=== PATIENT | female | born 1935 | race Caucasian/White ===

== ENCOUNTER → 2018-07-26 | Outpatient (CLI) | payer MEDICARE ==
[~2018-07-26] MED LIST: ASPI-496 PO; ASPI-515 PO; ASPI81TA45 PO; ATOR20TA PO; CALC-451 PO; CARV-39 PO; CLOP75TA52 PO; DOCU-131 PO; EPLE25TA PO; FURO-92 PO; FURO-93 PO; HYDR-3342 PO; LISI-170 PO; METF500T17 PO; METO25TA91 PO; METO50TA82 PO/NG; OXYC1TAB7 PO; PANT40TA3 PO; POTA10TA5 PO; POTA20PA25 PO; SIMV10TA3 PO; SPIR25TA PO; SPIR25TA5 PO; URSO300C27 PO; VIT1CAPS42 PO; VITA200C7 PO; ZOLP-413 PO
[2018-07-26 12:18] LABS: BASOPHILS # (AUTO) 0.02 x10^3/uL (0-0.1); BASOPHILS % (AUTO) 0 % (0-1); EOSINOPHILS # (AUTO) 0.22 x10^3/uL (0-0.4); EOSINOPHILS % (AUTO) 3 % (1-7); LYMPHOCYTES # (AUTO) 1.29 x10^3/uL (1-3.4); LYMPHOCYTES % (AUTO) 17 % (22-44); MD NO; MEAN CORPUSCULAR HEMOGLOBIN 32.6 pg (27.0-34.8); MEAN CORPUSCULAR HGB CONC 33.3 g/dL (32.4-35.8); MEAN CORPUSCULAR VOLUME 97.8 fL (80-100); MEAN PLATELET VOLUME 8.2 fL (7.4-10.4); MONOCYTES # (AUTO) 0.86 x10^3/uL (0.2-0.8); MONOCYTES % (AUTO) 11 % (2-9); NEUTROPHILS # (AUTO) 5.13 x10^3/uL (1.8-6.8); NEUTROPHILS % (AUTO) 68 % (42-75); PLATELET COUNT 288 x10^3/uL (130-400); RED BLOOD COUNT 4.53 x10^6/uL (3.82-5.3); RED CELL DISTRIBUTION WIDTH 13.8 % (9.6-15.2)
[2018-07-26 12:29] LABS: CULTURE INDICATED? YES; MICROSCOPIC NOT IND
[2018-07-26 12:48] LABS: ALBUMIN 3.6 g/dL (3.4-5.0); ANION GAP 5 mmol/L (5-15); CALCIUM 9.7 mg/dL (8.5-10.1); CHLORIDE 106 mmol/L (98-107)
[2018-07-26 12:52] LABS: ALANINE AMINOTRANSFERASE 33 U/L (12-78); ALKALINE PHOSPHATASE 292 U/L (45-117); BILIRUBIN,TOTAL 0.6 mg/dL (0.2-1.0); CREATININE 0.94 mg/dL (0.55-1.02); TOTAL PROTEIN 7.3 g/dL (6.4-8.2)
== END | disposition home or self-care (01) ==
LOC: STAR 10:48
PROVIDERS: ATTEND Orthopaedic Surgery
DX: Z01.818 Encounter for other preprocedural examination (principal); M17.12 Unilateral primary osteoarthritis, left knee
CPT/HCPCS: 36415; 80053; 81003; 85025; 87077; 87081; 87086; 87186; 93005

== ENCOUNTER 2018-08-02 05:45 | Inpatient (IN) | payer MEDICARE ==
[2018-07-26 11:34] VITALS: BP 181/93
[~2018-08-02] VITALS: Ht 152.4 cm; Wt 62.8 kg
[2018-08-02] MEDS ORDERED: KETOROLAC 60 MG/2 ML ONE (06:31)
[2018-08-02] MEDS ORDERED: TRANEXAMIC ACID 100 MG/ML, 10ML ONE (06:32)
[2018-08-02] MEDS ORDERED: SODIUM CHLORIDE 0.9% 100 ML ONE (06:32)
[2018-08-02] MEDS ORDERED: EPINEPHRINE 1 MG/ML, 1ML ONE (06:32)
[2018-08-02] MEDS ORDERED: VANCOMYCIN 1,000 MG ONE (06:32)
[2018-08-02] MEDS ORDERED: ROPIvacaine/PF 0.2%, 20 ML ONE (06:32)
[2018-08-02] MEDS ORDERED: FENTANYL PF 100 MCG/2ML ONE (06:38)
[2018-08-02] MEDS ORDERED: MIDAZOLAM 1 MG/ML, 2ML ONE (06:38)
[2018-08-02] MEDS ORDERED: PROPOFOL 50 ML ONE (06:41)
[2018-08-02] MEDS ORDERED: ACETAMINOPHEN 500 MG TABLET PO ONE (07:00)
[2018-08-02] MEDS ORDERED: ONDANSETRON ODT 8 MG PO ONE (07:00)
[2018-08-02] MEDS ORDERED: GABAPENTIN 300 MG CAPSULE PO ONE (07:00)
[2018-08-02] MEDS ORDERED: LACTATED RINGERS 1,000 ML IV SCH (07:01)
[2018-08-02] MEDS ORDERED: AMOX1TAB64 PO (07:04)
[2018-08-02] MEDS ORDERED: DEXAMETHASONE 4 MG/ML, 1ML ONE (07:10)
[2018-08-02] MEDS ORDERED: METOPROLOL 1 MG/ML, 5ML IV PRN (08:00)
[2018-08-02] MEDS ORDERED: OXYcodone 5 MG/5 ML ORAL.SOL UDC PO PRN (08:00)
[2018-08-02] MEDS ORDERED: HYDROmorphone 2 MG/ML, 1ML IVPush PRN (08:00)
[2018-08-02] MEDS ORDERED: ONDANSETRON 2MG/ML, 2ML IV PRN ×2 (08:00→09:00)
[2018-08-02] MEDS ORDERED: MIDAZOLAM 1 MG/ML, 2ML IV PRN (08:00)
[2018-08-02] MEDS ORDERED: hydrALAzine 20 MG/ML, 1ML IV PRN (08:00)
[2018-08-02] MEDS ORDERED: FENTANYL PF 100 MCG/2ML IV PRN (08:00)
[2018-08-02] MEDS ORDERED: ALBUTEROL/IPRATROPIUM 2.5MG/0.5MG, 3 ML NPPB PRN (08:00)
[2018-08-02] MEDS ORDERED: OXYcodone 5 MG/5 ML ORAL.SOL UDC ONE (08:57)
[2018-08-02] MEDS ORDERED: LISINOPRIL 20 MG TABLET PO SCH (09:00)
[2018-08-02] MEDS ORDERED: ZOLPIDEM 5MG TABLET PO PRN (09:00)
[2018-08-02] MEDS ORDERED: SENNA/DOCUSATE TABLET PO PRN (09:00)
[2018-08-02] MEDS ORDERED: HYDROmorphone 1 MG/ML, 1ML IV PRN (09:00)
[2018-08-02] MEDS ORDERED: metFORMIN 500 MG TABLET PO SCH (09:00)
[2018-08-02] MEDS ORDERED: PROMETHAZINE 25 MG/ML, 1ML IM PRN (09:00)
[2018-08-02] MEDS ORDERED: DIPHENHYDRAMINE 50 MG CAPSULE PO PRN (09:00)
[2018-08-02] MEDS ORDERED: PROMETHAZINE 12.5 MG SUPP PR PRN (09:00)
[2018-08-02] MEDS ORDERED: ACETAMINOPHEN 650 MG/20.3 ML UDC PO SCH (09:00)
[2018-08-02] MEDS ORDERED: ALUMINUM/MAG/SIMETHICONE 30 ML UDC PO PRN (09:00)
[2018-08-02] MEDS ORDERED: MAGNESIUM HYDROXIDE 8%, 30ML UDC PO PRN (09:00)
[2018-08-02] MEDS ORDERED: BISACODYL 10 MG SUPP PR PRN (09:00)
[2018-08-02] MEDS ORDERED: ONDANSETRON 4 MG TABLET PO PRN (09:00)
[2018-08-02] MEDS ORDERED: TRANEXAMIC ACID 1,000 MG in SODIUM CHLORIDE 0.9% 100 ML IVPB ONE (09:15)
[2018-08-02] MEDS ORDERED: MEPERIDINE/PF 25MG/ML,1ML ONE (09:31)
[2018-08-02] MEDS ORDERED: MEPERIDINE/PF 25MG/0.5ML IVPush PRN (10:00)
[2018-08-02] MEDS: AMOXICILLIN/CLAV 875-125MG TABLET PO SCH ×2 (10:30→21:25)
[2018-08-02] MEDS: SPIRONOLACTONE 25 MG TABLET PO SCH (11:47)
[2018-08-02] MEDS: FUROSEMIDE 20 MG TABLET PO SCH (11:49)
[2018-08-02] MEDS ORDERED: LISI-170 PO (13:14)
[2018-08-02 13:43] VITALS: BP 154/73
[2018-08-02] MEDS: SODIUM CHLORIDE 0.9% 1,000 ML IV SCH ×2 (13:51→23:07)
[2018-08-02] MEDS: TAMSULOSIN 0.4 MG CAP.ER.24H PO SCH (13:58)
[2018-08-02] MEDS: ACETAMINOPHEN 500 MG TABLET PO SCH ×2 (15:10→22:37)
[2018-08-02] MEDS: MULTIVITAMINS/MINERALS TABLET PO SCH (15:10)
[2018-08-02] MEDS: DOCUSATE 100 MG CAPSULE PO SCH ×2 (15:10→21:25)
[2018-08-02] MEDS: CEFAZOLIN PMX 1GM/50ML 50 ML IVPB SCH ×2 (16:09→23:33)
[2018-08-02] MEDS: metFORMIN 500 MG TABLET PO SCH (19:41)
[2018-08-02 20:00] VITALS: BP 128/73
[2018-08-02] MEDS ORDERED: CARVEDILOL 25 MG TABLET PO SCH (21:00)
[2018-08-02] MEDS: CARVEDILOL 25 MG TABLET PO SCH (21:00)
[2018-08-02] MEDS: LISINOPRIL 20 MG TABLET PO SCH (21:00)
[2018-08-02] MEDS ORDERED: URSODIOL 250 MG TABLET PO SCH (22:30)
[2018-08-02 23:53] VITALS: BP 104/59
[2018-08-03] MEDS: DIAZEPAM 5 MG TABLET PO PRN ×2 (03:18→21:27)
[2018-08-03 04:00] VITALS: BP 126/66
[2018-08-03] MEDS: ASPIRIN 81 MG TABLET EC PO SCH (05:23)
[2018-08-03] MEDS: ACETAMINOPHEN 500 MG TABLET PO SCH ×3 (05:25→22:31)
[2018-08-03] MEDS ORDERED: DEXAMETHASONE 4 MG/ML, 1ML IVPush SCH (06:00)
[2018-08-03 07:17] VITALS: BP 149/69
[2018-08-03] MEDS: SODIUM CHLORIDE 0.9% 1,000 ML IV SCH ×2 (08:30→17:01)
[2018-08-03] MEDS: AMOXICILLIN/CLAV 875-125MG TABLET PO SCH ×2 (11:07→22:06)
[2018-08-03] MEDS: MULTIVITAMINS/MINERALS TABLET PO SCH (11:08)
[2018-08-03] MEDS: CARVEDILOL 25 MG TABLET PO SCH ×2 (11:08→22:04)
[2018-08-03] MEDS: TAMSULOSIN 0.4 MG CAP.ER.24H PO SCH (11:08)
[2018-08-03] MEDS: KETOROLAC 30 MG/1 ML IV SCH ×2 (11:11→16:38)
[2018-08-03] MEDS: DOCUSATE 100 MG CAPSULE PO SCH ×2 (11:11→21:00)
[2018-08-03] MEDS: LISINOPRIL 10 MG TABLET PO SCH (11:11)
[2018-08-03] MEDS: FUROSEMIDE 20 MG TABLET PO SCH (11:13)
[2018-08-03] MEDS: SPIRONOLACTONE 25 MG TABLET PO SCH (11:20)
[2018-08-03 14:06] VITALS: BP 141/85
[2018-08-03] MEDS: OXYcodone IR 5MG TABLET PO PRN (16:39)
[2018-08-03] MEDS: metFORMIN 500 MG TABLET PO SCH (17:56)
[2018-08-03 20:03] VITALS: BP 155/71
[2018-08-03] MEDS: LISINOPRIL 20 MG TABLET PO SCH (22:04)
[2018-08-04] MEDS: KETOROLAC 30 MG/1 ML IV SCH (01:19)
[2018-08-04] MEDS: OXYcodone IR 5MG TABLET PO PRN ×2 (01:19→09:41)
[2018-08-04] MEDS: SODIUM CHLORIDE 0.9% 1,000 ML IV SCH ×2 (02:52→08:54)
[2018-08-04 03:10] VITALS: BP 143/69
[2018-08-04] MEDS: ASPIRIN 81 MG TABLET EC PO SCH (06:03)
[2018-08-04] MEDS: ACETAMINOPHEN 500 MG TABLET PO SCH ×4 (06:04→23:57)
[2018-08-04 07:18] VITALS: BP 152/75
[2018-08-04] MEDS: SPIRONOLACTONE 25 MG TABLET PO SCH (08:52)
[2018-08-04] MEDS: LISINOPRIL 10 MG TABLET PO SCH (08:53)
[2018-08-04] MEDS: FUROSEMIDE 20 MG TABLET PO SCH (08:53)
[2018-08-04] MEDS: AMOXICILLIN/CLAV 875-125MG TABLET PO SCH ×2 (08:53→21:05)
[2018-08-04] MEDS: TAMSULOSIN 0.4 MG CAP.ER.24H PO SCH (08:53)
[2018-08-04] MEDS: CARVEDILOL 25 MG TABLET PO SCH ×2 (08:54→21:06)
[2018-08-04] MEDS: MULTIVITAMINS/MINERALS TABLET PO SCH (08:54)
[2018-08-04] MEDS: DOCUSATE 100 MG CAPSULE PO SCH ×2 (08:54→21:05)
[2018-08-04] MEDS: DIAZEPAM 5 MG TABLET PO PRN (14:06)
[2018-08-04 14:38] VITALS: BP 117/68
[2018-08-04] MEDS: metFORMIN 500 MG TABLET PO SCH (17:50)
[2018-08-04 19:45] VITALS: BP 123/69
[2018-08-04 21:04] VITALS: BP 150/72
[2018-08-04] MEDS: LISINOPRIL 20 MG TABLET PO SCH (21:05)
[2018-08-05] MEDS: SODIUM CHLORIDE 0.9% 1,000 ML IV SCH ×2 (00:30→10:30)
[2018-08-05] MEDS: ASPIRIN 81 MG TABLET EC PO SCH (06:05)
[2018-08-05 06:48] VITALS: BP 147/72
[2018-08-05] MEDS: ACETAMINOPHEN 500 MG TABLET PO SCH ×2 (08:30→14:32)
[2018-08-05] MEDS ORDERED: TRAM50TA2 PO (08:36)
[2018-08-05] MEDS ORDERED: ASPI81TA45 PO (08:36)
[2018-08-05] MEDS ORDERED: DIAZ5TAB PO (08:37)
[2018-08-05] MEDS ORDERED: ACET325C5 PO (08:38)
[2018-08-05] MEDS: AMOXICILLIN/CLAV 875-125MG TABLET PO SCH (08:43)
[2018-08-05] MEDS: SPIRONOLACTONE 25 MG TABLET PO SCH (08:45)
[2018-08-05] MEDS: DOCUSATE 100 MG CAPSULE PO SCH (08:45)
[2018-08-05] MEDS: CARVEDILOL 25 MG TABLET PO SCH (08:45)
[2018-08-05] MEDS: FUROSEMIDE 20 MG TABLET PO SCH (08:46)
[2018-08-05] MEDS: LISINOPRIL 10 MG TABLET PO SCH (08:47)
[2018-08-05] MEDS: MULTIVITAMINS/MINERALS TABLET PO SCH (08:47)
[2018-08-05 14:07] VITALS: BP 160/83
== END 2018-08-05 16:57 | DRG 470 ==
LOC: OUT 05:45 → ORIP 08:44 → 4NOR 10:12
PROVIDERS: ADMIT Orthopaedic Surgery; ATTEND Orthopaedic Surgery
PROC: 3E0T3BZ Introduction of Anesthetic Agent into Peripheral Nerves and Plexi, Percutaneous Approach (ICD-10-PCS; 2018-08-02)
PROC: 0SRD0J9 Replacement of Left Knee Joint with Synthetic Substitute, Cemented, Open Approach (ICD-10-PCS; principal; 2018-08-02 07:30)
DX: M17.12 Unilateral primary osteoarthritis, left knee (principal); I50.42 Chronic combined systolic (congestive) and diastolic (congestive) heart failure; I10 Essential (primary) hypertension; I25.10 Atherosclerotic heart disease of native coronary artery without angina pectoris; E11.9 Type 2 diabetes mellitus without complications; Z95.1 Presence of aortocoronary bypass graft; Z95.810 Presence of automatic (implantable) cardiac defibrillator; Z60.2 Problems related to living alone; I11.0 Hypertensive heart disease with heart failure
CPT/HCPCS: 36415; 82962; 85014; 85018; G0378; J0171; J0690; J1100; J1885; J2175; J2250; J2405; J2704; J2795; J3010; J3370; Q0162; C1776; J7030; J7120

== ENCOUNTER 2021-01-22 06:20 | Day surgery (SDC) | payer MEDICARE ==
[~2021-01-22] VITALS: Ht 152.4 cm; Wt 51.9 kg
[~2021-01-22 06:20] MED LIST changes: +ACET325C6 PO; +AMOX1TAB64 PO; -ASPI-515 PO; +ASPI-963 PO; +DIAZ5TAB PO; +SIMV10TA18 PO; -SIMV10TA3 PO; +TRAM50TA2 PO
[2021-01-22 07:00] VITALS: BP 185/97
[2021-01-22] MEDS ORDERED: LIDOCAINE-MPF 1%, 5ML ONE (07:50)
[2021-01-22 08:43] LABS: INTERNATIONAL NORMALIZED RATIO 1.04 (0.93-1.1); PROTHROMBIN TIME 11.1 Seconds (9.6-11.5)
[2021-01-22] MEDS ORDERED: MIDAZOLAM 1 MG/ML, 5ML ONE (09:14)
[2021-01-22] MEDS ORDERED: FLUMAZENIL 0.1 MG/1 ML, 5ML ONE (09:14)
[2021-01-22] MEDS ORDERED: NALOXONE 1 MG/ML, 2ML ONE (09:14)
[2021-01-22] MEDS ORDERED: FENTANYL PF 100 MCG/2ML ONE (09:14)
== END 2021-01-22 11:50 | disposition home or self-care (01) ==
LOC: OUT 06:20 → EDSTATUS 08:00 → OUT 11:50
PROVIDERS: ATTEND Internal Medicine Gastroenterology
DX: K74.3 Primary biliary cirrhosis (principal); K75.9 Inflammatory liver disease, unspecified; I10 Essential (primary) hypertension; E11.9 Type 2 diabetes mellitus without complications; I25.10 Atherosclerotic heart disease of native coronary artery without angina pectoris; I25.2 Old myocardial infarction; M81.0 Age-related osteoporosis without current pathological fracture; Z79.82 Long term (current) use of aspirin; Z79.899 Other long term (current) drug therapy; Z88.8 Allergy status to other drugs, medicaments and biological substances; Z96.651 Presence of right artificial knee joint; Z98.890 Other specified postprocedural states
CPT/HCPCS: 36415; 47000; 77012; 85610; 88307; 88313; 99156; J2250; J3010; J2310

== ENCOUNTER 2021-03-17 13:27 | Inpatient (IN) | payer MEDICARE ==
[~2021-03-17] VITALS: Ht 152.4 cm; Wt 54.4 kg
[2021-03-17] MEDS ORDERED: ONDANSETRON 2MG/ML, 2ML IVPush ONE (14:00)
[2021-03-17] MEDS ORDERED: MORPHINE SULFATE 4 MG/ML, 1ML IVPush PRN (14:00)
[2021-03-17] MEDS ORDERED: SODIUM CHLORIDE FLUSH 10ML SYR IVF ONE (14:00)
[2021-03-17 14:09] LABS: BASOPHILS % (AUTO) 1 % (0-1); EOSINOPHILS % (AUTO) 2 % (1-7); LYMPHOCYTES % (AUTO) 7 % (22-44); MEAN CORPUSCULAR HEMOGLOBIN 31.5 pg (27.0-34.8); MEAN CORPUSCULAR HGB CONC 33.7 g/dL (32.4-35.8); MONOCYTES % (AUTO) 11 % (2-9); NEUTROPHILS % (AUTO) 80 % (42-75); PLATELET COUNT 301 x10^3/uL (130-400); RED BLOOD COUNT 4.26 x10^6/uL (3.82-5.3); RED CELL DISTRIBUTION WIDTH 13.5 % (9.6-15.2)
[2021-03-17 14:18] LABS: ALBUMIN 2.4 g/dL (3.4-5.0); ANION GAP 5 mmol/L (5-15); CHLORIDE 105 mmol/L (98-107)
[2021-03-17 14:24] LABS: ALANINE AMINOTRANSFERASE 34 U/L (12-78); ALKALINE PHOSPHATASE 281 U/L (45-117); BILIRUBIN,TOTAL 0.6 mg/dL (0.2-1.0); CREATINE KINASE, TOTAL 74 U/L (26-192); CREATININE 0.54 mg/dL (0.55-1.02); TOTAL PROTEIN 6.6 g/dL (6.4-8.2)
[2021-03-17] MEDS ORDERED: ONDANSETRON 2MG/ML, 2ML ONE (14:31)
[2021-03-17] MEDS ORDERED: MORPHINE SULFATE 4 MG/ML, 1ML ONE (14:31)
--- NOTE | 2021-03-17 15:22 | NUR ---
iv started. PT MEDICATED FOR PAIN. STRAIGHT CATH URINE SENT TO LAB. PT TOLERATED PROCEDURE WELL. CALL LIGHT WITHIN REACH. WILL CONTINUE TO MONITOR.
[2021-03-17 15:25] LABS: MICROSCOPIC NOT IND
[2021-03-17] MEDS ORDERED: EYE VITAMINS PO (15:27)
[2021-03-17] MEDS ORDERED: ASPI-963 PO (15:27)
[2021-03-17] MEDS ORDERED: ESTRACE TD (15:27)
[2021-03-17] MEDS ORDERED: LISI-170 PO (15:27)
[2021-03-17] MEDS ORDERED: URSO500T9 PO (15:27)
[2021-03-17] MEDS ORDERED: SODIUM CHLORIDE FLUSH 10ML SYR IVF PRN (15:30)
--- NOTE | 2021-03-17 16:10 | NUR ---
PT RESTING CALMLY IN BED WITH EYES CLOSED. NO STATED NEEDS AT THIS TIME. WILL CONTINUE TO MONITOR.
--- NOTE | 2021-03-17 16:40 | NUR ---
PT GIVEN MEAL TRAY. PT REPOSITIONED FOR COMFORT TO EAT.
--- NOTE | 2021-03-17 17:11 | NUR ---
REPORT TO RAUL MENESES
--- NOTE | 2021-03-17 17:17 | NUR ---
HOSPITALIST IN ROOM WITH PT AT THIS TIME.
[2021-03-17] MEDS ORDERED: POLYETHYLENE GLYCOL 17 GM PACKET PO PRN (17:30)
[2021-03-17] MEDS ORDERED: ONDANSETRON 2MG/ML, 2ML IVPush PRN (17:30)
[2021-03-17] MEDS ORDERED: HYDROcodone/APAP 5/325 TABLET PO PRN (17:30)
[2021-03-17] MEDS ORDERED: ONDANSETRON ODT 4 MG PO PRN (17:30)
[2021-03-17] MEDS ORDERED: hydrALAzine 20 MG/ML, 1ML IVPush PRN (17:30)
[2021-03-17] MEDS ORDERED: MELATONIN 5 MG TABLET PO PRN (17:30)
[2021-03-17] MEDS ORDERED: ACETAMINOPHEN 325 MG TABLET PO PRN (17:30)
[2021-03-17] MEDS ORDERED: morphine SULFATE 10 MG/ML, 1ML IVPush PRN (17:30)
[2021-03-17] MEDS ORDERED: BISACODYL 10 MG SUPP PR PRN (17:30)
[2021-03-17 18:10] VITALS: BP 163/95
[2021-03-17] MEDS: HEPARIN 5,000 UNITS/ML, 1ML SQ SCH (18:28)
[2021-03-17] MEDS: metFORMIN 500 MG TABLET PO SCH (18:28)
[2021-03-17] MEDS: LISINOPRIL 20 MG TABLET PO SCH (18:28)
[2021-03-17] MEDS: LACTATED RINGERS 1,000 ML IV SCH (18:28)
[2021-03-17 20:30] VITALS: BP 167/90
[2021-03-17] MEDS: URSODIOL 250 MG TABLET PO SCH (21:00)
[2021-03-17] MEDS: SENNA/DOCUSATE TABLET PO SCH (21:05)
[2021-03-17] MEDS: CARVEDILOL 25 MG TABLET PO SCH (21:07)
[2021-03-17] MEDS: LIDODERM 5% PATCH TD PRN (21:08)
[2021-03-18] MEDS: HEPARIN 5,000 UNITS/ML, 1ML SQ SCH ×3 (01:53→17:30)
[2021-03-18 02:06] VITALS: BP 153/85
[2021-03-18 06:05] LABS: BASOPHILS % (AUTO) 1 % (0-1); EOSINOPHILS % (AUTO) 5 % (1-7); LYMPHOCYTES % (AUTO) 17 % (22-44); MEAN CORPUSCULAR HEMOGLOBIN 31.5 pg (27.0-34.8); MEAN CORPUSCULAR HGB CONC 33.1 g/dL (32.4-35.8); MEAN PLATELET VOLUME 8.4 fL (7.4-10.4); MONOCYTES % (AUTO) 15 % (2-9); NEUTROPHILS % (AUTO) 62 % (42-75); PLATELET COUNT 262 x10^3/uL (130-400); RED BLOOD COUNT 3.87 x10^6/uL (3.82-5.3); RED CELL DISTRIBUTION WIDTH 13.5 % (9.6-15.2)
[2021-03-18 06:22] LABS: ALBUMIN 2.3 g/dL (3.4-5.0); ANION GAP 3 mmol/L (5-15); CHLORIDE 108 mmol/L (98-107)
[2021-03-18 06:30] LABS: INTERNATIONAL NORMALIZED RATIO 1.04 (0.93-1.1); PROTHROMBIN TIME 11.1 Seconds (9.6-11.5)
[2021-03-18 06:35] LABS: ALANINE AMINOTRANSFERASE 29 U/L (12-78); ALKALINE PHOSPHATASE 243 U/L (45-117); BILIRUBIN,TOTAL 0.5 mg/dL (0.2-1.0); CHOL/HDL RATIO 6.1; CHOLESTEROL, TOTAL 194 mg/dL (140-239); CREATININE 0.66 mg/dL (0.55-1.02); HDL CHOL % 16 % (28-40); HDL CHOLESTEROL (DIRECT) 32 mg/dL (40-60); LDL CHOLESTEROL,CALCULATED 135 mg/dL (54-169); LDL/HDL RATIO 4.2 (0.5-3.0); TOTAL PROTEIN 5.8 g/dL (6.4-8.2); TRIGLYCERIDES 135 mg/dL (50-200); VLDL CHOLESTEROL 27 mg/dL (0-25)
[2021-03-18 07:35] VITALS: BP 163/83
[2021-03-18] MEDS: ASPIRIN 81 MG TABLET EC PO SCH (09:00)
[2021-03-18] MEDS: URSODIOL 250 MG TABLET PO SCH ×2 (09:00→21:00)
[2021-03-18] MEDS: SENNA/DOCUSATE TABLET PO SCH ×2 (09:00→21:48)
[2021-03-18] MEDS: LISINOPRIL 20 MG TABLET PO SCH ×3 (09:00→21:48)
[2021-03-18] MEDS: SPIRONOLACTONE 25 MG TABLET PO SCH (11:14)
[2021-03-18] MEDS: CARVEDILOL 25 MG TABLET PO SCH ×2 (11:15→21:48)
[2021-03-18] MEDS: LACTATED RINGERS 1,000 ML IV SCH (13:30)
[2021-03-18 13:56] VITALS: BP 107/69
[2021-03-18] MEDS ORDERED: OMNIPAQUE 350 MG/ML, 100ML BOTTLE ONE (15:37)
[2021-03-18 19:04] VITALS: BP 159/75
[2021-03-18] MEDS: metFORMIN 500 MG TABLET PO SCH (19:06)
[2021-03-18 21:43] VITALS: BP 156/82
[2021-03-18] MEDS: LIDODERM 5% PATCH TD PRN (21:47)
[2021-03-18] MEDS: GABAPENTIN 300 MG CAPSULE PO PRN (21:48)
[2021-03-18] MEDS ORDERED: FENTANYL 12 MCG PATCH TD SCH (23:30)
[2021-03-19 00:21] VITALS: BP 143/87
[2021-03-19] MEDS: HEPARIN 5,000 UNITS/ML, 1ML SQ SCH ×3 (02:22→18:03)
[2021-03-19 06:00] LABS: BASOPHILS % (AUTO) 1 % (0-1); EOSINOPHILS % (AUTO) 5 % (1-7); LYMPHOCYTES % (AUTO) 22 % (22-44); MEAN CORPUSCULAR HEMOGLOBIN 31.1 pg (27.0-34.8); MEAN CORPUSCULAR HGB CONC 32.9 g/dL (32.4-35.8); MEAN PLATELET VOLUME 8.2 fL (7.4-10.4); MONOCYTES % (AUTO) 13 % (2-9); NEUTROPHILS % (AUTO) 60 % (42-75); PLATELET COUNT 252 x10^3/uL (130-400); RED BLOOD COUNT 3.95 x10^6/uL (3.82-5.3); RED CELL DISTRIBUTION WIDTH 13.1 % (9.6-15.2)
[2021-03-19 06:07] LABS: ANION GAP 6 mmol/L (5-15); CHLORIDE 105 mmol/L (98-107); CREATININE 0.72 mg/dL (0.55-1.02)
[2021-03-19 06:52] LABS: HCT (SEDRATE) 37.4 % (34.6-47.8)
[2021-03-19] MEDS: CARVEDILOL 25 MG TABLET PO SCH ×3 (09:00→22:16)
[2021-03-19] MEDS: ASPIRIN 81 MG TABLET EC PO SCH (09:00)
[2021-03-19 09:30] VITALS: BP 138/74
[2021-03-19] MEDS: SENNA/DOCUSATE TABLET PO SCH ×2 (09:45→22:13)
[2021-03-19] MEDS: LISINOPRIL 20 MG TABLET PO SCH ×3 (09:45→22:16)
[2021-03-19] MEDS: GABAPENTIN 300 MG CAPSULE PO PRN (09:45)
[2021-03-19] MEDS: SPIRONOLACTONE 25 MG TABLET PO SCH (10:08)
[2021-03-19] MEDS: URSODIOL 250 MG TABLET PO SCH ×2 (10:09→22:15)
[2021-03-19] MEDS: GABAPENTIN 300 MG CAPSULE PO SCH ×3 (14:37→22:15)
[2021-03-19 15:53] VITALS: BP 155/77
[2021-03-19] MEDS: metFORMIN 500 MG TABLET PO SCH (18:02)
[2021-03-19 19:47] VITALS: BP 175/85
[2021-03-19] MEDS: LIDODERM 5% PATCH TD PRN (22:17)
[2021-03-20 00:50] VITALS: BP 178/81
[2021-03-20 01:41] VITALS: BP 173/80
[2021-03-20] MEDS: HEPARIN 5,000 UNITS/ML, 1ML SQ SCH ×2 (01:42→10:42)
[2021-03-20 07:07] VITALS: BP 123/78
[2021-03-20] MEDS: ASPIRIN 81 MG TABLET EC PO SCH (09:00)
[2021-03-20] MEDS: SPIRONOLACTONE 25 MG TABLET PO SCH (10:41)
[2021-03-20] MEDS: GABAPENTIN 300 MG CAPSULE PO SCH ×2 (10:41→16:34)
[2021-03-20] MEDS: SENNA/DOCUSATE TABLET PO SCH (10:41)
[2021-03-20] MEDS: LISINOPRIL 20 MG TABLET PO SCH (10:41)
[2021-03-20] MEDS: URSODIOL 250 MG TABLET PO SCH (10:41)
[2021-03-20] MEDS: CARVEDILOL 25 MG TABLET PO SCH (10:42)
[2021-03-20 12:59] VITALS: BP 152/88
[2021-03-20] MEDS ORDERED: METF500T17 PO (15:10)
[2021-03-20] MEDS ORDERED: LIDO700A20 TD (15:10)
[2021-03-20] MEDS ORDERED: MELA5TAB14 PO (15:10)
[2021-03-20] MEDS ORDERED: SENN-211 PO (15:10)
[2021-03-20] MEDS ORDERED: ONDA4TAB13 PO (15:10)
[2021-03-20] MEDS ORDERED: GABA300C PO (15:10)
[2021-03-20] MEDS ORDERED: POLY17PO5 PO (15:10)
[2021-03-20] MEDS ORDERED: TRAM50TA2 PO (15:32)
[2021-03-20] MEDS ORDERED: Fentanyl Remove Patch XX (15:33)
[2021-03-21] MEDS ORDERED: FENTANYL REMOVE PATCH NOTE XX SCH (23:30)
== END 2021-03-20 16:42 | DRG 551 ==
LOC: ED 15:43 → EDIP 16:14 → 4NE 17:54
PROVIDERS: ADMIT Internal Medicine; ATTEND Internal Medicine
PROC: 0T9B70Z Drainage of Bladder with Drainage Device, Via Natural or Artificial Opening (ICD-10-PCS; principal; 2021-03-17)
DX: M53.3 Sacrococcygeal disorders, not elsewhere classified (principal); E43 Unspecified severe protein-calorie malnutrition; S32.031A Stable burst fracture of third lumbar vertebra, initial encounter for closed fracture; E87.1 Hypo-osmolality and hyponatremia; R64 Cachexia; M47.816 Spondylosis without myelopathy or radiculopathy, lumbar region; D72.829 Elevated white blood cell count, unspecified; E11.9 Type 2 diabetes mellitus without complications; N20.0 Calculus of kidney; Z96.651 Presence of right artificial knee joint; G89.29 Other chronic pain; E78.5 Hyperlipidemia, unspecified; I10 Essential (primary) hypertension; I25.2 Old myocardial infarction; Z82.3 Family history of stroke; Z68.23 Body mass index [BMI] 23.0-23.9, adult; Z82.49 Family history of ischemic heart disease and other diseases of the circulatory system; Z95.1 Presence of aortocoronary bypass graft; Z95.810 Presence of automatic (implantable) cardiac defibrillator
CPT/HCPCS: 36415; 71045; 72132; 72192; 80048; 80053; 80061; 81003; 82550; 82962; 83036; 83735; 84100; 84443; 85025; 85610; 85651; 86140; 93005; 96374; G0378; J1644; J2405; Q0162; Q9967; J0360; J2270; J7120